=== PATIENT | male | born 1990 | race Caucasian/White ===

== ENCOUNTER 2021-07-05 11:24 | Emergency (ER) | payer OTHER, SELFPAY ==
--- NOTE | ~2021-07-05 | XR_ITS ---
EXAMINATION: XR HAND, RIGHT CLINICAL INFORMATION: Status post injury, pain. COMPARISON: None TECHNIQUE: PA, lateral, and oblique views of the right hand. FINDINGS: Oblique minimally displaced fracture is present involving the midshaft of the fourth right metacarpal. The remainder of the visualized bones are intact, show satisfactory alignment and intact cortices. The articular margins, joint space appear unremarkable. No radiopaque foreign body. XR/XR hand RT 2V IMPRESSION: Abnormal study. Oblique minimally displaced fracture involving the midshaft of the right fourth metacarpal.
[2021-07-05 11:34] VITALS: BP 155/94; PULSE 98; RESP 16; TEMP 36.7; O2SAT 98; BMI 32.1
--- NOTE | 2021-07-05 12:25 | ED.EXTPRO ---
HPI - Extremity Problem General Chief complaint: Extremity Injury, Upper Stated complaint: rt hand injury Time Seen by Provider: 07/05/21 11:43 Source: patient Mode of arrival: ambulatory Limitations: no limitations History of Present Illness HPI Narrative: 30-year-old male [id number] here with right hand pain after a heavy drill slammed on his hand while working. No numbness, tingling. Related Data Previous Rx's Medication Instructions Recorded ibuprofen 800 mg tablet 800 mg PO Q8H PRN #20 tab 07/05/21 oxycodone 5 mg tablet 5 mg PO Q6H PRN #10 tab 07/05/21 Allergies Allergy/AdvReac Type Severity Reaction Status Date / Time No Known Allergies Allergy Unverified 05/26/20 18:34 [No Known Allergies*] Review of Systems Review of Systems: Yes all other systems are reviewed and are negative Constitutional: Constitutional: Reports no additional constitutional complaints, Denies body ache(s), Denies chills, Denies fever(s), Denies headache(s) and Denies weakness Eyes: Eyes: Reports no additional eye complaints and Denies change in vision ENT: Reports system reviewed and no additional complaints, except as documented, Denies dizziness, Denies headache(s), Denies nasal congestion, Denies nasal discharge and Denies neck pain Cardiovascular: Cardiovascular: Reports no additional cardiovascular complaints, Denies chest pain, Denies leg edema and Denies dyspnea Respiratory: Respiratory: Reports no additional respiratory complaints, Denies cough and Denies dyspnea Gastrointestinal: Gastrointestinal: Reports no additional gastrointestinal complaints, Denies abdominal pain, Denies diarrhea, Denies nausea and Denies vomiting Genitourinary: Genitourinary: Denies urinary incontinence Musculoskeletal: Musculoskeletal: Reports no additional musculoskeletal complaints, Denies back pain, Reports arthralgias, Denies joint swelling, Denies neck pain, Denies numbness and Denies tingling Integumentary/Breasts: Skin/Breast: Reports system reviewed and no additional complaints, except as docu and Denies rash Neurologic: Reports system reviewed and no additional complaints, except as documented, Denies Abnormal speech present, Denies dizziness, Denies headache(s), Denies numbness, Denies tingling and Denies weakness [facility] Past Medical History Attestation statement: The following information was validated with the patient. Source: old records reviewed and nursing notes reviewed Social History Social History Advance Directives: No Advance Directives Information Provided: No Physical Exam Vital Signs: Vital Signs: Last Vital Signs Temp 98.1 F 07/05/21 11:34 Pulse 98 07/05/21 11:34 Resp 6 L 07/05/21 11:34 BP 155/94 H 07/05/21 11:34 Pulse Ox 98 07/05/21 11:34 Body Mass Index 32.1 Const: General: cooperative, healthy appearing, comfortable and no acute distress Orientation/consciousness: patient oriented x3 Limitations: no limitations HENMT: Head: Yes normal to inspection Ears: hearing grossly normal bilaterally General nose exam: Normal external nose present Face and sinus: Yes normal facial exam Mouth: Normal oral and palatal mucosa present Throat: Yes posterior oropharynx normal Eyes: General: appearance normal, both eyes and all related structures Pupils: Equal, round and reactive pupils present Neck: Neck: Yes normal visual inspection Chest: Chest palpation & inspection: normal inspection of the chest Resp: Effort & Inspection: normal respiratory effort Auscultation: clear to auscultation bilaterally Cardio: Rate: regular rate Rhythm: regular rhythm Peripheral pulses: Peripheral pulses 2+ throughout GI: Inspection: Yes normal to inspection Palpation (GI): Soft to palpation and nontender Auscultation: normal bowel sounds Back/Spine/Pelvis: Thoracic/Lumbar Spine: thoracic and lumbar spine normal to inspection Skin: General skin exam: no rashes or lesions noted Neuro: General: patient oriented x3, no focal motor deficits and normal sensation to monofilament Cranial nerves: Yes Equal, round and reactive pupils present Cognition (Neuro): normal cognition Speech: No Abnormal speech present Gait exam (Neuro): Normal gait present Motor exam (neuro): 5/5 motor strength present throughout Extrem: Other: Tenderness over the dorsal aspect of the right distal hand over the 4th meta carpal. Full range of motion of hand. Neurovascularly intact distally. Normal cap refill General: Yes normal to inspection Course Course Course Narrative: Right hand pain after striking the right hand with a heavy drill just prior to arrival. Pain and tenderness over the right 4th meta carpal. Will check x-rays. 1230-x-ray show oblique minimally displaced fracture involving the midshaft of the right 4th metacarpal. Patient placed in ulnar gutter splint. Spoke to Orthopedics here. Patient prefers to follow-up with his own orthopedic at [facility]. He called and spoke to them and has an appointment tomorrow morning. Sling for comfort. Reviewed rice. Reviewed worrisome signs and symptoms when to return to the emergency department. Comfortable discharge home. MDM - Extremity (Nontraumatic) Medical Records Attestation: I reviewed the patient's medical records. Lab Data Attestation: I reviewed the patient's lab results. Imaging Data hand x-ray: Attestation: I personally reviewed and interpreted this imaging study as follows: Radiologist's impression: [address] [address] XRay Report Signed Patient: Toñito Colon MR#: [id number] : 1990 Acct:[id number] Age/Sex: 30 / M ADM Date: 07/05/21 Loc: HO.ED Attending Dr: Ordering Physician: Clarita May NP Date of Service: 07/05/21 Procedure(s): XR hand RT 2V Accession Number(s): [id number] cc: Clarita May NP~ EXAMINATION: XR HAND, RIGHT CLINICAL INFORMATION: Status post injury, pain.? COMPARISON: None? TECHNIQUE: PA, lateral, and oblique views of the right hand. FINDINGS: Oblique minimally displaced fracture is present involving the midshaft of the fourth right metacarpal. The remainder of the visualized bones are intact, show satisfactory alignment and intact cortices. The articular margins, joint space appear unremarkable. No radiopaque foreign body. XR/XR hand RT 2V IMPRESSION: Abnormal study. Oblique minimally displaced fracture involving the midshaft of the right fourth metacarpal. Procedures Procedure Narrative Procedure Narrative: ulnar gutter, sling Discharge Plan Discharge Clinical Impression: Fracture of hand Qualifiers: Encounter type: initial encounter Fracture type: closed Laterality: right Qualified Code(s): S62.91XA - Unspecified fracture of right wrist and hand, initial encounter for closed fracture Patient Disposition: Home, Self-Care Instructions: Hand Fracture (ED) Additional Instructions: Follow-up with orthopedics tomorrow Do not get the splint wet Elevate the extremity and use a sling for comfort Take ibuprofen 3 times a day schedule. Take oxycodone as needed. No use of the extremity Prescriptions: New ibuprofen 800 mg tablet 800 mg PO Q8H PRN (Reason: pain) Qty: 20 RF: 0 oxycodone 5 mg tablet 5 mg PO Q6H PRN (Reason: pain) Qty: 10 RF: 0 Referrals: Aldo Govea MD [Physician] - 2 days
== END 2021-07-05 12:55 | disposition home or self-care (01) ==
PROVIDERS: Emergency Provider Emergency Medicine
DX: S62.324A Displaced fracture of shaft of fourth metacarpal bone, right hand, initial encounter for closed fracture (principal); W22.8XXA Striking against or struck by other objects, initial encounter; Y93.9 Activity, unspecified; Y92.9 Unspecified place or not applicable; Y99.0 Civilian activity done for income or pay
CPT/HCPCS: 29125; 73120; 99283; 99284